=== PATIENT | male | born 1945 | race Two or more races ===

== ENCOUNTER 2019-02-28 07:26 | Emergency (ER) | payer OTHER ==
[~2019-02-28] VITALS: Ht 175.3 cm; Wt 104.3 kg
[~2019-02-28 07:26] MED LIST: ATENOLOL50 MG PO; BAYER81 MG PO; CARVEDILOL6.25 MG PO; CLONAZEPAM1 MG PO; COUMADIN1 MG; COUMADIN2.5 MG PO; ENALAPRIL MALEA10 MG NGT; HYDROCHLOROTHIA25 MG PO; LANOXIN125 MCG; LASIX20 MG PO; PACERONE200 MG PO; RESTORIL15 MG PO; SEPTRA DS TABLE1 TAB PO; SIMVASTATIN10 MG; TENORMIN50 M1 PO; VASOTEC20 M1 PO; ZOCOR20 MG PO
[2019-02-28] MEDS ORDERED: XARELTO10 MG (08:31)
== END 2019-02-28 11:54 | disposition home or self-care (01) ==
LOC: ER 07:26
DX: S00.83XA Contusion of other part of head, initial encounter (principal); W18.39XA Other fall on same level, initial encounter; Y93.89 Activity, other specified; Y92.098 Other place in other non-institutional residence as the place of occurrence of the external cause; Y99.8 Other external cause status; I10 Essential (primary) hypertension

== ENCOUNTER 2020-11-28 14:02 | Inpatient (IN) | payer OTHER ==
[~2020-11-28] VITALS: Ht 170.2 cm; Wt 113.4 kg
[~2020-11-28 14:02] MED LIST changes: +XARELTO10 MG
--- NOTE | 2020-11-28 15:10 | NUR ---
SE RECIBE PTE EN COMPANIA DE PARAMEDICO SE UBICA PTE EN [facility] [place], SE UBICA PTE EN CAMA CON BARANDAS ELEVADA Y TIMBRE ACCESIBLE SE CONECTA A MONITOR CARDIACO Y OXYMETRIA DE [place], SE ORIENTA PTE SOBRE EL TRATAMIENTO ORDENADO POR EL DR CRUZ PTE ALERTA Y CONCIENTE AL MOMENTO SE RELAIZAN MUESTRAS DE LABORATORIO Y SE ADMINISTRIAN MEDICAMENTOS ANGELIC ORDENADO SE NOTIFCA A TERAPISTA MACY ABG, SE INSERTA GREEN #16 BAJO MEDIDAS ASEPTICAS PTE SE MANTIENE EN OBSERVACION Y BAJO TRATAMIENTO.
--- NOTE | 2020-11-28 15:28 | NUR ---
SE RECIBE PTE ALERTA Y ORIENTADO EN PERSONA EN CAMILL#18 DE UNIDAD DE CHEST PAIN. PTE EN [place] CON BARADNAS ELEVADAS Y CABECERA A 45GRADOS. PTE CONECTADO A MONITOR CARDIACO CON OXIMETRIA CONTINUA. PTE CON H/L X2 EN BRAZO LT LOS CUALES SE OBSERVAN LIBRES DE EDEMA Y ENROJECIMIENTO. PTE CON NON REBREATHER MASK AL 100% COLOCADA. PTE CON GREEN BAJANDO A GRAVEDAD. SE MIDEN S/V A PTE Y SE DOCUMENTAN. PTE CON BP 200/[address] CRUZ. SE COLOCA 10MG IV DE LABETALOL A PTE ANGELIC ORDEN MEDICA. SE REALIZA COVID MOLECULAR IN A PTE, SE REALIZA EKG A PTE Y SE PRESENTA A MD. PTE SE CONTINUA MONITORIANDO POR CAMBIOS.
--- NOTE | 2020-11-28 23:16 | NUR ---
SE RECIBE MASCULINO ALERTA Y ORIENTADO EN PERSONA, EN CAMA CON BARANDAS ELEVADAS Y SEGURAS. CONECTADO A MONITOR CARDIACO CON OXIMETRIA DE [place]. ASISTIDO POR NON REBREATHING MASK LA CUAL TOLERA SATURANDO 99% CON UN BUEN PATRON RESPIRATORIO. CANALIZADO X EN BRAZO MAGGIE CON AREA DE VENOPUNCIONES LIBRES DE EDEMA O ENROJECIMIENTO. RECIBIENDO 0.45% @ 20 ML/HR. GREEN PATENTE DRENANDO ORINA COLOR AMARILLO. PENDIENTE VISITA DE DR. HOLDEN.
--- NOTE | 2020-11-29 07:29 | NUR ---
SE RECIBE PTE DEL TURNO ANTERIOR EN CAMA NIVEL MAS BAJO CON BARANDAS ELEVADAS POR PRECAUCION, CONECTADO A MONITOR CARDIACO Y OXIMETRIA DE [place]. PACIENTE AL MOMENTO DORMIDO, SE ESTIMULA VERBALMENTE Y ABRE LOS OJOS. PRESENTA BUEN PATRON RESPIRATORIO ASISTIDO A NON REBREATHING AL 100% SATURANDO AL MOMENTO 97% CON OXIMETRIA DE [place]. PIEL TIBIA AL TACTO EN AREA DE VENOPUNCION EN MANO L+ CON ANGIOS #20 Y #18 RECIBIENDO 0.45% NSS KVO. SE OBSERVA PIEL RESECA CON EDEMA EN EXTREMIDADES SUPERIORES E INFERIORES, ABRASION EN AREA DISTAL INFERIOR DE PIERNA R+ CON SECRECIONES VERDOSAS. SE OBSERVA EN AREA DE LA LENGUA RYAN. ABDOMEN DEPRESIBLE CON MOVIMIENTOS PERISTALTICOS PRESENTES, SONDA URINARIA #16 CON EGRESO DE APROXIMADAMENTE 500 ML COLOR AMARILLA INTENSA. PTE CONSULTADO CON DR. ELTON HOLDEN POR HBP DESCONTROLADA, CHF Y EFUSION PLEURAL, PENDIENTE A EVALUACION. SE MANTIENE A PTE BAJO OBSERVACION POR CAMBIOS EN CONDICION.
== END 2020-12-09 13:49 | disposition home or self-care (01) | DRG 308 ==
LOC: ER 14:02 → MEDI 11-29 09:48
PROVIDERS: ADMIT Internal Medicine Cardiovascular Disease; ATTEND Internal Medicine Cardiovascular Disease
PROC: B24BYZZ Ultrasonography of Heart with Aorta using Other Contrast (ICD-10-PCS; principal; 2020-11-29)
PROC: B020ZZZ Computerized Tomography (CT Scan) of Brain (ICD-10-PCS; 2020-11-29)
DX: I48.91 Unspecified atrial fibrillation (principal); I50.23 Acute on chronic systolic (congestive) heart failure; N39.0 Urinary tract infection, site not specified; M62.82 Rhabdomyolysis; R55 Syncope and collapse; I11.0 Hypertensive heart disease with heart failure; I50.84 End stage heart failure; Z20.822 Contact with and (suspected) exposure to COVID-19

== ENCOUNTER 2023-11-10 14:04 | Inpatient (IN) | payer OTHER ==
[~2023-11-10] VITALS: Ht 162.6 cm; Wt 159.7 kg
[2023-11-10 15:22] LABS: HEMATOCRIT 38.2 % (39.0-48.0); HEMOGLOBIN 12.5 g/dL (13-16.00); MEAN CELL VOLUME 93.4 fL (80.0-100.00); MEAN CORPUSCULAR HEMOGLOBIN 30.5 pg (27.00-32.0); MEAN CORPUSCULAR HGB CONC 32.7 g/dl (32.0-36.0); RED BLOOD COUNT 4.09 M/uL (4.00-6.00); RED CELL DISTRIBUTION WIDTH 14.3 % (11.5-14.5)
[2023-11-10 15:23] LABS: PLATELET COUNT 127 K/uL (150-450)
[2023-11-10 15:50] LABS: INR 2.55
[2023-11-10 16:00] LABS: CALCIUM 8.7 mg/dL (8.5-10.1); CHOL HDL RATIO 2.5 (0-5.0); CREATININE SERUM 1.38 mg/dL (0.70-1.30); GFR 49.83; MAGNESIUM 1.9 mg/dL (1.8-2.4); POTASSIUM 3.8 mEq/L (3.5-5.1)
[2023-11-10 16:05] LABS: URIC ACID 4.2 mg/dL (3.5-8.5)
[2023-11-10 16:06] LABS: DIGOXIN 0.1 ng/ml (0.8-2.0)
[2023-11-10 16:55] LABS: ABG PH 7.409 (7.35-7.45); ABG PO2 73.6 mmHg (80-100); ABG pCO2 53.1 mmHg (35-45); BASE EXCESS 6.5 mmol/l; BICARBONATE 32.8 mmol/l (23-25); Tco2 34.4 mmol/l; o2 24 %
[2023-11-10 16:56] LABS: allen test SATISFACTORY; puncture site RADIAL RIGHT
[2023-11-11 02:14] LABS: MAGNESIUM 1.8 mg/dL (1.8-2.4)
[2023-11-11 08:30] LABS: ALBUMIN 2.4 gm/dL (3.4-5.0); BILIRUBIN TOTAL 1.02 mg/dL (0.3-1.2); BILIRUBIN,CONJUGATED 0.55 mg/dL (0.0-0.2); BILIRUBIN,UNCONJUGATED 0.47 mg/dL (0.0-0.6); CALCIUM 8.8 mg/dL (8.5-10.1); CHOL HDL RATIO 2.5 (0-5.0); CREATININE SERUM 1.21 mg/dL (0.70-1.30); GLOBULINA 4.5 G/DL (2.4-3.5); POTASSIUM 3.95 mEq/L (3.5-5.1); TOTAL PROTEIN 6.9 gm/dL (6.4-8.2)
[2023-11-11 08:47] LABS: URINE APPEARANCE Cloudy; URINE BILIRRUBIN Negative (NEGATIVE); URINE BLOOD Large; URINE COLOR Dark Yellow; URINE GLUCOSE Negative (NEGATIVE); URINE LEUKOCYTE Moderate; URINE NITRATE Negative; URINE PROTEIN 30 (NEGATIVE)
[2023-11-11 08:51] LABS: URINE BACTERIA 1920.1 uL (0.0-1933); URINE EPITHELIAL CELLS 13.6 uL (0.0-38.8); URINE RBC 389.6 uL (0.0-20.8); URINE WBC 657.2 uL (0.0-23.2)
[2023-11-11 09:26] LABS: C-REACTIVE PROTEIN 16.5 MG/DL (0.00-0.29)
[2023-11-11 09:40] LABS: HEMATOCRIT 36.5 % (39.0-48.0); HEMOGLOBIN 12.1 g/dL (13-16.00); INR 1.76; MEAN CELL VOLUME 93.2 fL (80.0-100.00); MEAN CORPUSCULAR HEMOGLOBIN 30.9 pg (27.00-32.0); MEAN CORPUSCULAR HGB CONC 33.1 g/dl (32.0-36.0); RED BLOOD COUNT 3.92 M/uL (4.00-6.00); RED CELL DISTRIBUTION WIDTH 14.7 % (11.5-14.5)
[2023-11-11 10:14] LABS: PROTHROMBIN TIME 17.7 SECONDS (9.0-11.5)
[2023-11-11 10:15] LABS: PARTIAL THROMBOPLASTIN TIME 38.2 SECONDS (22.0-34.0)
[2023-11-11 10:24] LABS: PLATELET COUNT 113 K/uL (150-450)
[2023-11-11 11:04] LABS: ERYTHROCYTE SEDIMENTATION RATE 90 mm/hr
[2023-11-11 12:19] LABS: CKMB 13.3 NG/ML (0.5-3.6)
[2023-11-11 22:49] LABS: CKMB 15.5 NG/ML (0.5-3.6)
[2023-11-12 07:33] LABS: ALBUMIN 2.6 gm/dL (3.4-5.0); BILIRUBIN TOTAL 1.03 mg/dL (0.3-1.2); CALCIUM 8.8 mg/dL (8.5-10.1); CREATININE SERUM 1.4 mg/dL (0.70-1.30); GFR 49.01; GLOBULINA 4.1 G/DL (2.4-3.5); POTASSIUM 3.44 mEq/L (3.5-5.1); TOTAL PROTEIN 6.7 gm/dL (6.4-8.2)
[2023-11-13 07:21] LABS: ALBUMIN 2.2 gm/dL (3.4-5.0); BILIRUBIN TOTAL 0.65 mg/dL (0.3-1.2); CALCIUM 8.4 mg/dL (8.5-10.1); CREATININE SERUM 1.36 mg/dL (0.70-1.30); GFR 50.68; GLOBULINA 3.9 G/DL (2.4-3.5); TOTAL PROTEIN 6.1 gm/dL (6.4-8.2)
[2023-11-13 08:14] LABS: POTASSIUM 6.65 mEq/L (3.5-5.1)
[2023-11-14 06:38] LABS: CALCIUM 8.6 mg/dL (8.5-10.1); CREATININE SERUM 0.98 mg/dL (0.70-1.30); GFR 73.97
[2023-11-15 14:48] LABS: ABG PH 7.422 (7.35-7.45); ABG pCO2 59.4 mmHg (35-45)
[2023-11-15 14:49] LABS: BASE EXCESS 10.8 mmol/l; BICARBONATE 37.8 mmol/l (23-25); SaO2 91.5 %; Tco2 39.6 mmol/l; allen test SATISFACTORY; o2 21 %; puncture site RADIAL RIGHT
[2023-11-17 08:59] LABS: ABG PH 7.434 (7.35-7.45); ABG PO2 55.2 mmHg (80-100); ABG pCO2 53.9 mmHg (35-45); BASE EXCESS 9.1 mmol/l; BICARBONATE 35.3 mmol/l (23-25); SaO2 90.1 %; allen test SATISFACTORY; puncture site RADIAL RIGHT
[2023-11-17 09:00] LABS: o2 21 %
[2023-11-19 08:19] LABS: CALCIUM 8.8 mg/dL (8.5-10.1); CREATININE SERUM 0.82 mg/dL (0.70-1.30); GFR 90.86; MAGNESIUM 1.8 mg/dL (1.8-2.4); PHOSPHOROUS 2.8 mg/dL (2.5-4.9); POTASSIUM 4.79 mEq/L (3.5-5.1)
[2023-11-19 09:14] LABS: HEMATOCRIT 37.2 % (39.0-48.0); HEMOGLOBIN 12.5 g/dL (13-16.00); MEAN CELL VOLUME 90.6 fL (80.0-100.00); MEAN CORPUSCULAR HEMOGLOBIN 30.4 pg (27.00-32.0); MEAN CORPUSCULAR HGB CONC 33.5 g/dl (32.0-36.0); PLATELET COUNT 234 K/uL (150-450); RED BLOOD COUNT 4.11 M/uL (4.00-6.00); RED CELL DISTRIBUTION WIDTH 14.4 % (11.5-14.5)
[2023-11-20 14:48] LABS: ABG PH 7.426 (7.35-7.45); ABG PO2 68.7 mmHg (80-100); BASE EXCESS 7.4 mmol/l; BICARBONATE 33.4 mmol/l (23-25); SaO2 94.3 %; allen test SATISFACTORY; o2 21 %; puncture site RADIAL RIGHT
[2023-11-21] MEDS ORDERED: CARVEDILOL6.25 MG PO (14:19)
[2023-11-21] MEDS ORDERED: AMIODARONE HCL200 MG PO (14:19)
[2023-11-21] MEDS ORDERED: XARELTO20 MG PO (14:19)
[2023-11-21] MEDS ORDERED: SIMVASTATIN20 MG PO (14:20)
[2023-11-21] MEDS ORDERED: CLONAZEPAM1 MG PO (14:20)
[2023-11-21] MEDS ORDERED: RESTORIL15 MG PO (14:20)
[2023-11-21] MEDS ORDERED: FAMOTIDINE20 MG PO (14:21)
[2023-11-21] MEDS ORDERED: LASIX20 MG PO (14:21)
== END 2023-11-22 12:19 | DRG 291 ==
LOC: ER 14:04 → MEDI 23:25 → ICU-2 23:25 → MEDI 11-11 15:48
PROVIDERS: Emergency Medicine; General Practice; Internal Medicine; Internal Medicine Nephrology; ADMIT Internal Medicine; ATTEND Internal Medicine
PROC: B24BZZZ Ultrasonography of Heart with Aorta (ICD-10-PCS; 2023-11-10)
PROC: B345ZZZ Ultrasonography of Bilateral Common Carotid Arteries (ICD-10-PCS; 2023-11-10)
PROC: 4A12X4Z Monitoring of Cardiac Electrical Activity, External Approach (ICD-10-PCS; principal; 2023-11-11)
PROC: BW24ZZZ Computerized Tomography (CT Scan) of Chest and Abdomen (ICD-10-PCS; 2023-11-11)
PROC: B54DZZZ Ultrasonography of Bilateral Lower Extremity Veins (ICD-10-PCS; 2023-11-14)
DX: I11.0 Hypertensive heart disease with heart failure (principal); J18.9 Pneumonia, unspecified organism; L97.929 Non-pressure chronic ulcer of unspecified part of left lower leg with unspecified severity; L97.919 Non-pressure chronic ulcer of unspecified part of right lower leg with unspecified severity; L03.116 Cellulitis of left lower limb; L03.115 Cellulitis of right lower limb; M62.82 Rhabdomyolysis; I50.9 Heart failure, unspecified; I48.91 Unspecified atrial fibrillation; E11.621 Type 2 diabetes mellitus with foot ulcer; Z79.4 Long term (current) use of insulin; B95.2 Enterococcus as the cause of diseases classified elsewhere; D69.6 Thrombocytopenia, unspecified; G47.33 Obstructive sleep apnea (adult) (pediatric); Z20.822 Contact with and (suspected) exposure to COVID-19; E78.5 Hyperlipidemia, unspecified; J44.9 Chronic obstructive pulmonary disease, unspecified

== ENCOUNTER 2023-12-30 15:12 | Inpatient (IN) | payer OTHER ==
[~2023-12-30] VITALS: Ht 175.3 cm; Wt 5.0 kg
[~2023-12-30 15:12] MED LIST changes: +AMIODARONE HCL200 MG PO; +FAMOTIDINE20 MG PO; +SIMVASTATIN20 MG PO; +XARELTO20 MG PO
--- NOTE | 2023-12-30 15:26 | NUR ---
SE RECIBE MASCULINO ALERTA Y ORIENTADO X3 EN AMBULANCIA. PTE REFIERE DIFICULTAD RESPIRATORIA. SE OBSERVAN EXTREMIDADES INFERIORES CON EDEMA. SE MIDEN S/V Y SE REALIZA EKG. SE UBICA EN SECCION K Y SE CONECTA A PTE EN MONITOR CARDIACO Y OXIMETRIA DE [place] EN ESPERA DE EVALUACION MEDICA.
[2023-12-30 18:16] LABS: HEMOGLOBIN 12.1 g/dL (13-16.00); MEAN CELL VOLUME 93.7 fL (80.0-100.00); MEAN CORPUSCULAR HEMOGLOBIN 30.8 pg (27.00-32.0); MEAN CORPUSCULAR HGB CONC 32.8 g/dl (32.0-36.0); RED BLOOD COUNT 3.94 M/uL (4.00-6.00); RED CELL DISTRIBUTION WIDTH 17.1 % (11.5-14.5)
[2023-12-30 18:19] LABS: PLATELET COUNT 125 K/uL (150-450)
--- NOTE | 2023-12-30 18:21 | NUR ---
PACIENTE ALERTA Y ORIENTADO X3. SE EXTRAEN MUESTRAS DE LABORATORIO ANGELIC ORDEN MEDICA. SE NOTIFICA ERX.
[2023-12-30 18:45] LABS: ALBUMIN 2.8 gm/dL (3.4-5.0); BILIRUBIN TOTAL 0.93 mg/dL (0.3-1.2); CALCIUM 9.2 mg/dL (8.5-10.1); CREATININE SERUM 1.34 mg/dL (0.70-1.30); GFR 51.55; GLOBULINA 4.8 G/DL (2.4-3.5); POTASSIUM 4.55 mEq/L (3.5-5.1); TOTAL PROTEIN 7.6 gm/dL (6.4-8.2)
[2023-12-30] MEDS ORDERED: IPRATROPIUM BROMIDE 0.5 MG/2.5 ML AMPUL.NEB IH SCH (20:20)
[2023-12-30] MEDS ORDERED: ATORVASTATIN CALCIUM 20 MG TABLET PO SCH (20:23)
[2023-12-30] MEDS ORDERED: ONDANSETRON HCL 4 MG in 0.9 % SODIUM CHLORIDE 50 ML IV PRN (20:30)
[2023-12-30] MEDS ORDERED: FUROsemide 40 MG/4 ML VIAL IV ONE (20:30)
[2023-12-30] MEDS ORDERED: ACETAMINOPHEN 500 MG GEL..CAP PO PRN (20:30)
[2023-12-30] MEDS ORDERED: CARVEDILOL 6.25 MG TABLET PO SCH (21:00)
[2023-12-30 22:38] LABS: INR 1.7; PARTIAL THROMBOPLASTIN TIME 34.9 SECONDS (22.0-34.0)
[2023-12-30 22:42] LABS: PROTHROMBIN TIME 17.2 SECONDS (9.0-11.5)
[2023-12-30 23:12] LABS: ABG PO2 73.6 mmHg (80-100); ABG pCO2 59.4 mmHg (35-45); BASE EXCESS 5.4 mmol/l; BICARBONATE 32.8 mmol/l (23-25); SaO2 94.2 %; Tco2 34.7 mmol/l; o2 21 %
[2023-12-30 23:13] LABS: allen test SATISFACTORY; puncture site RADIAL RIGHT
[2023-12-30 23:48] LABS: PH,URINE 5.5 (5.0-8.0); URINE APPEARANCE Clear; URINE BILIRRUBIN Negative (NEGATIVE); URINE BLOOD Large; URINE COLOR Yellow; URINE GLUCOSE Negative (NEGATIVE); URINE LEUKOCYTE Moderate; URINE NITRATE Negative; URINE PROTEIN Trace (NEGATIVE)
[2023-12-30 23:49] LABS: URINE BACTERIA 115.9 uL (0.0-1933); URINE EPITHELIAL CELLS 3.7 uL (0.0-38.8); URINE RBC 1573.9 uL (0.0-20.8); URINE WBC 73.5 uL (0.0-23.2)
[2023-12-31] MEDS ORDERED: FUROsemide 20 MG/2 ML VIAL IV SCH (04:00)
[2023-12-31 08:12] LABS: MAGNESIUM 1.9 mg/dL (1.8-2.4); PHOSPHOROUS 3.7 mg/dL (2.5-4.9); TSH 0.676 uIU/mL (0.358-3.74)
[2023-12-31] MEDS ORDERED: NITROGLYCERIN IN 5 % DEXTROSE 50 MG/250 ML BOTTLE IV SCH (08:30)
[2023-12-31] MEDS ORDERED: RIVAROXABAN 10 MG TAB PO SCH (09:00)
[2023-12-31] MEDS ORDERED: ENALAPRIL MALEATE 20 MG TABLET PO SCH (09:00)
[2023-12-31] MEDS ORDERED: NITROGLYCERIN IN 5 % DEXTROSE 250 ML IV SCH (09:15)
[2024-01-01 05:58] LABS: ALBUMIN 2.3 gm/dL (3.4-5.0); BILIRUBIN TOTAL 0.89 mg/dL (0.3-1.2); CALCIUM 8.7 mg/dL (8.5-10.1); CREATININE SERUM 1.05 mg/dL (0.70-1.30); GFR 68.31; GLOBULINA 3.5 G/DL (2.4-3.5); POTASSIUM 3.64 mEq/L (3.5-5.1); TOTAL PROTEIN 5.8 gm/dL (6.4-8.2)
[2024-01-01] MEDS ORDERED: RIVAROXABAN 20 MG TABLET PO SCH (09:00)
[2024-01-02] MEDS ORDERED: ISOSORBIDE MONONITRATE 30 MG TABLET PO SCH (13:04)
== END 2024-01-03 19:48 | disposition home or self-care (01) | DRG 291 ==
LOC: ER 15:12 → MEDI 21:17
PROVIDERS: Emergency Medicine; General Practice; Internal Medicine Nephrology; ADMIT Internal Medicine; ATTEND Internal Medicine
PROC: 4A12X4Z Monitoring of Cardiac Electrical Activity, External Approach (ICD-10-PCS; principal; 2023-12-31)
PROC: B24BZZZ Ultrasonography of Heart with Aorta (ICD-10-PCS; 2024-01-01)
DX: I13.0 Hypertensive heart and chronic kidney disease with heart failure and stage 1 through stage 4 chronic kidney disease, or unspecified chronic kidney disease (principal); I50.33 Acute on chronic diastolic (congestive) heart failure; N17.9 Acute kidney failure, unspecified; I48.91 Unspecified atrial fibrillation; E78.5 Hyperlipidemia, unspecified; N18.9 Chronic kidney disease, unspecified